=== PATIENT | male | born 2000 | race Caucasian/White ===

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

== ENCOUNTER → 2023-05-04 | Outpatient (CLI) | payer OTHER ==
--- NOTE | 2023-05-04 23:06 | US ---
EXAMINATION TYPE: US scrotum with doppler. Grayscale and color Doppler Duplex imaging performed of adebayo domingo scrotum. DATE OF EXAM: 05/04/2023 COMPARISON: NONE CLINICAL INDICATION: Male, 22 years old with history of I86.1 SCROTAL VARICES; Pt states he went to a urologist and they told him he has a left sided varicocele. Not having any problems right now. EXAM MEASUREMENTS: TESTICLES: Right Testicle: 4.3 x 2.9 x 2.1 cm Left Testicle: 4.3 x 2.6 x 1.9 cm EPIDIDYMIS HEAD: Right Epididymis: 1.0 cm. Cyst in head measuring 2.3 x 1.3 x 1.2cm Left Epididymis: 0.94 cm. Cyst in head measuring 1.1 x 1.1 x 0.9cm Doppler performed to assess for testicular vascularity; good bilateral color flow and waveforms are s een. There is no evidence of testicular torsion. Presence of hydroceles: Small on right side Presence of varicoceles: Yes bilaterally IMPRESSION: 1. Bilateral epididymal cysts. This is larger on the right. 2. Increased vascular flow with Valsalva at the left inguinal canal.
== END | disposition home or self-care (01) ==
LOC: RADUSWWP 16:54
PROVIDERS: ATTEND Urology
DX: I86.1 Scrotal varices (principal); N50.3 Cyst of epididymis
CPT/HCPCS: 76870; 93975

== ENCOUNTER → 2024-08-16 | Outpatient (CLI) | payer OTHER ==
--- NOTE | 2024-08-16 18:56 | XR ---
EXAMINATION TYPE: XR shoulder complete RT DATE OF EXAM: 08/16/2024 8:26 AM COMPARISON: None CLINICAL INDICATION: Male, 23 years old with history of M25.511 R shoulder pain; PHH, pain TECHNIQUE: 3 views FINDINGS: There is mild marginal spurring at the AC joint. Subacromial space is preserved. No delineation of th e greater tuberosity. No acute fracture, subluxation, dislocation. IMPRESSION: Mild early degenerative spurring at the AC joint. No acute osseous abnormality seen. [facility], , 08/16/2024 6:54 PM
== END | disposition home or self-care (01) ==
LOC: RADXRMAIN 08:13
PROVIDERS: ATTEND Family Medicine
DX: M19.011 Primary osteoarthritis, right shoulder (principal)